=== PATIENT | male | born 1980 | race Caucasian/White ===

== ENCOUNTER 2019-11-24 11:46 | Emergency (ER) | payer BC ==
[~2019-11-24] VITALS: Ht 185.4 cm; Wt 70.3 kg
[2019-11-24 11:49] VITALS: BP_SYST 164
[2019-11-24] MEDS ORDERED: ACYC400T PO (12:11)
[2019-11-24] MEDS ORDERED: ABAC1TAB15 PO (12:11)
[2019-11-24] MEDS ORDERED: IPRATROPIUM/ALBUTEROL SULFATE 3 ML AMPUL.NEB (DUONEB) INH ONE (13:15)
[2019-11-24 13:39] VITALS: BP_SYST 150
== END 2019-11-24 13:39 | disposition home or self-care (01) ==
LOC: SED 11:46
DX: J44.9 Chronic obstructive pulmonary disease, unspecified (principal); Z79.899 Other long term (current) drug therapy
CPT/HCPCS: 36600; 71045; 82803-TC; 94640; 99284